=== PATIENT | male | born 1995 | race Two or more races ===

== ENCOUNTER 2020-08-29 17:35 | Emergency (ER) | payer SELFPAY ==
--- NOTE | 2020-08-29 18:27 | EDM.PDOC ---
ED HPI GENERAL MEDICAL PROBLEM - General Chief Complaint: Gastrointestinal Problem Stated Complaint: POSSIBLE GI BLEEDMARIAMA REFERRAL Time Seen by Provider: 08/29/20 17:54 Source of Information: Reports: Patient History Limitations: Reports: No Limitations - History of Present Illness INITIAL COMMENTS - FREE TEXT/NARRATIVE: Patient is a 24-year-old male who was sent here in today for abnormal labs. Patient that he has basic lab work done is show a low hemoglobin elevated WBC. Patient hemoglobin is 8.9 and WBC is 16.9. Patient has been having abdominal pain for the past few years and has diarrhea daily. Patient occasionally sees blood in his stool as well. Patient states he has no abnormal biju pain today just baseline abdominal pain. Patient also reports been weak and tired for the past few months as well. Patient denies any fever chills nausea vomiting states he is tolerating p.o. normally. Abdominal Pain Score (Numeric/FACES): 2 - Related Data Allergies Allergy/AdvReac Type Severity Reaction Status Date / Time No Known Allergies Allergy Verified 08/29/20 18:28 Home Meds: Home Meds Ferrous Sulfate [Ferosul] 1 tab PO 08/29/20 [History] Past Medical History - Past Health History Medical/Surgical History: Denies Medical/Surgical History ED ROS GENERAL - Review of Systems Review Of Systems: See Below Constitutional: Reports: No Symptoms HEENT: Reports: No Symptoms Respiratory: Reports: No Symptoms Cardiovascular: Reports: No Symptoms Endocrine: Reports: No Symptoms GI/Abdominal: Reports: Abdominal Pain : Reports: No Symptoms Musculoskeletal: Reports: No Symptoms Skin: Reports: No Symptoms Neurological: Reports: No Symptoms Psychiatric: Reports: No Symptoms Hematologic/Lymphatic: Reports: No Symptoms Immunologic: Reports: No Symptoms ED EXAM, GI/ABD - Physical Exam Exam: See Below Exam Limited By: No Limitations General Appearance: Alert, WD/WN, No Apparent Distress Eyes: Bilateral: EOMI Ears: Normal External Exam Head: Atraumatic, Normocephalic Respiratory/Chest: No Respiratory Distress, Lungs Clear, Normal Breath Sounds Cardiovascular: Normal Peripheral Pulses, Regular Rate, Rhythm, No Edema GI/Abdominal Exam: Normal Bowel Sounds, Soft, Non-Tender Extremities: Normal Inspection Neurological: Alert, Oriented, CN II-XII Intact, Normal Cognition Course - Vital Signs Last Recorded V/S: Last Vital Signs Temp 99.2 F 08/29/20 17:50 Pulse 122 H 08/29/20 17:50 Resp BP 136/77 08/29/20 17:50 Pulse Ox 98 08/29/20 17:50 - Orders/Labs/Meds Orders: Active Orders 24 hr Category Date Time Status Guaiac [OCCULT BLOOD DIAGNOSTIC] [OP] Stat Lab 08/29/20 18:39 Ordered Labs: Laboratory Tests 08/29/20 08/29/20 08/29/20 Range/Units 18:04 18:04 18:04 WBC 18.34 H (4.0-11.0) K/uL RBC 4.43 L (4.50-5.90) M/uL Hgb 8.7 L (13.0-17.0) g/dL Hct 28.8 L (38.0-50.0) % MCV 65.0 L (80.0-98.0) fL MCH 19.6 L (27.0-32.0) pg MCHC 30.2 L (31.0-37.0) g/dL RDW Std Deviation 41.0 (28.0-62.0) fl RDW Coeff of [place]in 17 H (11.0-15.0) % Plt Count 774 H (150-400) K/uL MPV 8.80 (7.40-12.00) fL Neut % (Auto) 71.2 (48.0-80.0) % Lymph % (Auto) 16.2 (16.0-40.0) % [place] % (Auto) 8.3 (0.0-15.0) % Eos % (Auto) 3.9 (0.0-7.0) % Baso % (Auto) 0.4 (0.0-1.5) % Neut # (Auto) 13.1 H (1.4-5.7) K/uL Lymph # (Auto) 3.0 H (0.6-2.4) K/uL [place] # (Auto) 1.5 H (0.0-0.8) K/uL Eos # (Auto) 0.7 (0.0-0.7) K/uL Baso # (Auto) 0.1 (0.0-0.1) K/uL Nucleated RBC % 0.0 /100WBC Nucleated RBCs # 0 K/uL INR 1.06 APTT 26.5 (18.6-31.3) SEC Sodium 134 L (136-148) mmol/L Potassium 4.0 (3.5-5.1) mmol/L Chloride 100 (98-107) mmol/L Carbon Dioxide 25.3 (21.0-32.0) mmol/L BUN 8 (7.0-18.0) mg/dL Creatinine 1.2 (0.8-1.3) mg/dL Est Cr Clr Drug Dosing 96.02 mL/min Estimated GFR (MDRD) > 60.0 ml/min Glucose 105 (74-106) mg/dL Calcium 8.2 L (8.5-10.1) mg/dL Total Bilirubin 0.2 (0.2-1.0) mg/dL AST 13 L (15-37) IU/L ALT 19 (14-63) IU/L Alkaline Phosphatase 96 (46-116) U/L Total Protein 7.2 (6.4-8.2) g/dL Albumin 2.6 L (3.4-5.0) g/dL Globulin 4.6 H (2.6-4.0) g/dL Albumin/Globulin Ratio 0.6 L (0.9-1.6) - Re-Assessments/Exams Free Text/Narrative Re-Assessment/Exam: 08/29/20 19:01 We spoke to patient's PMD Dr. Speedy Preciado and also Dr. Dennis rogers and also Dr. Honeycutt and we think patient needs to be transferred to be evaluated by GI specialist. Patient looks well was able to tolerate has no symptoms currently. Do does not have any ambulance is in the next 1 will be available un til 2 AM patient will be driven by private vehicle. Patient's mother has been given instructions and a fully understand patient will be transferred and autogenous excepted. Departure - Departure Time of Disposition: 18:57 Disposition: DC/Tfer to Acute Hospital 02 Condition: Good Clinical Impression: IBD (inflammatory bowel disease) - Discharge Information *PRESCRIPTION DRUG MONITORING PROGRAM REVIEWED*: Not Applicable *COPY OF PRESCRIPTION DRUG MONITORING REPORT IN PATIENT JHONY: Not Applicable Instructions: Bloody Diarrhea Referrals: Melody Fitzpatrick NP [Primary Care Provider] - Forms: ED Department Discharge Additional Instructions: You are to be transferred and seen at [facility] in the ER Dr. Vergara is expecting you. Please go there directly. If you have any concerns complaints on the way there please return to the nearest ER. Sepsis Event Note (ED) - Evaluation Sepsis Screening Result: No Definite Risk - Focused Exam Vital Signs: Vital Signs Temp Pulse BP Pulse Ox 08/29/20 17:50 99.2 F 122 H 136/77 98 - My Orders Last 24 Hours: My Active Orders 08/29/20 18:39 Guaiac [OCCULT BLOOD DIAGNOSTIC] [OP] Stat - Assessment/Plan Last 24 Hours: My Active Orders 08/29/20 18:39 Guaiac [OCCULT BLOOD DIAGNOSTIC] [OP] Stat Plan: Patient is a 24-year-old male who presents today for abdominal pain for the past few years and also a low hemoglobin as well as elevated WBC. Patient had a CAT scan done today as well that showed a possible colitis. Unclear cause of patient's abdominal issues. Patient may past need to be admitted and evaluated by general surgery.
[2020-08-29 18:50] LABS: BLOOD UREA NITROGEN,BUN 8 mg/dL (7.0-18.0); CARBON DIOXIDE,CO2 25.3 mmol/L (21.0-32.0); CHLORIDE,CL 100 mmol/L (98-107); GLUCOSE RANDOM 105 mg/dL (74-106); SODIUM,NA 134 mmol/L (136-148)
== END 2020-08-29 19:12 ==
LOC: MW.ED 17:35
DX: K63.89 Other specified diseases of intestine (principal)
CPT/HCPCS: 36415; 80053; 85025; 85610; 85730; 99284; 99285-25